=== PATIENT | male | born 1955 | race African-American/Black ===

== ENCOUNTER 2017-11-16 09:27 | Inpatient (IN) ==
[2017-11-16] MEDS ORDERED: hydrALAZINE 20 MG/1 ML VIAL IV STA (09:45)
[2017-11-16] MEDS ORDERED: ALBUTEROL/IPRATROPIUM 3 ML NEB RESP TX STA (09:45)
[2017-11-16 09:56] LABS: Basophils % 0.3 % (0.0-0.8); Eosinophils % 0.1 % (0.00-10.9); Hematocrit 25.7 VOL% (42.0-52.0); Hemoglobin 8.5 GM/DL (14.0-18.0); Immature Granulocytes % 0.6 %; Immature Granulocytes Absolute 0.05 #; Lymphocytes # 0.5 10*3/uL (1.4-4.0); Mean Corpuscular HGB Conc 33.1 GM/DL (32-36); Mean Corpuscular Hemoglobin 30 PG (27-34); Mean Corpuscular Volume 89.5 FL (87-102); Mean Platelet Volume 10.9 FL (9.6-12.0); Monocytes # 0.6 10*3/uL (0.11-0.8); Monocytes % 7.3 % (1.7-12.7); Neutrophils # 6.7 10*3/uL (1.4-7.4); Neutrophils % 85.7 % (38.7-73.9); Platelet Count 117 T/CUMM (130-400); Red Blood Count 2.87 MC/CUMM (3.8-5.5); Red Cell Distribution Width 15.2 % (9.3-17.3); White Blood Count 7.8 T/CUMM (4-12)
[2017-11-16 10:05] LABS: INR 1.2; PT Patient Result 12.5 SECS; Partial Thromboplastin Time 28.9 SECS (0-40)
[2017-11-16 10:11] LABS: Apearance,Urine CLEAR (Clear); Bilirubin,Urine Negative (Negative); Blood, Urine Negative (Negative); Glucose,Urine (UA) 50 mg/dL (Negative); Ketones,Urine Negative (Negative); Nitrite,Urine Negative (Negative); Protein,Urine >=500 MG/DL; RBC,Urine <1 /HPF (0-4); Squamous Epithelial Cell,Urine Occasional /HPF (0-10); Urine Color Yellow (Yellow); Urine Urobilinogen < 2.0 EU/DL (0.2-1.0); WBC,Urine <1 /HPF (0-6)
[2017-11-16 10:21] LABS: Barbiturates Screen,Urine Negative (Negative); Benzodiazepines Screen,Urine Negative (Negative); Cannabinoid Screen,Urine Negative (Negative); Opiate Screen,Urine Negative (Negative); Phencyclidine Screen,Urine Negative (Negative)
[2017-11-16] MEDS ORDERED: FUROSEMIDE 40 MG/4 ML VIAL IV STA (10:26)
[2017-11-16] MEDS ORDERED: FUROSEMIDE 40 MG/4 ML VIAL ONE (10:30)
[2017-11-16 10:50] LABS: Alanine Aminotransferase 17 U/L (16-61); Alkaline Phosphatase 54 U/L (45-117); Aspartate Amino Transferase 16 U/L (0-37); Blood Urea Nitrogen 129 MG/DL (7-18); Calcium 7.7 MG/DL (8.5-10.1); Glucose 152 MG/DL (74-106); Osmolality,Calculated 314.1 MOS/KG (273-304); Potassium 3.9 MMOL/L (3.5-5.1); Sodium 135 MMOL/L (136-145); Total Protein 6.5 G/DL (6.4-8.3); Troponin I Only 0.713 NG/ML (0.00-0.045)
[2017-11-16] MEDS ORDERED: ONDANSETRON 4 MG/2 ML VIAL IV PRN (12:11)
[2017-11-16] MEDS ORDERED: ZALEPLON 5 MG CAPSULE PO PRN (12:11)
[2017-11-16] MEDS ORDERED: ACETAMINOPHEN 325 MG TABLET PO PRN (12:11)
[2017-11-16] MEDS ORDERED: EPOETIN ALFA 2,000 UNIT/1 ML VIAL IV PRN (16:05)
[2017-11-16] MEDS: CALCITRIOL 0.25 MCG CAPSULE PO SCH (16:32)
[2017-11-16] MEDS: CALCIUM CARBONATE CHEW 500 MG TABLET PO SCH (16:32)
[2017-11-16] MEDS: METOPROLOL TARTRATE 50 MG TABLET PO SCH (16:32)
[2017-11-16 16:35] LABS: Hepatitis A Ab IgM Quant 0.15 Index; Hepatitis A Ab IgM Result Negative (Negative); Hepatitis B Core IgM Quant 0.18 Index; Hepatitis B Core IgM Result Negative (Negative); Hepatitis B Surface Ag Quant < 0.10 Index; Hepatitis B Surface Ag Result Negative (Negative); Hepatitis C Virus Ab Quant 0.18 Index; Hepatitis C Virus Ab Result Negative (Negative)
[2017-11-16] MEDS: DOXAZOSIN 4 MG TABLET PO SCH (21:42)
[2017-11-16] MEDS: DOCUSATE SODIUM 100 MG CAPSULE PO SCH (21:43)
[2017-11-17 04:51] LABS: Basophils % 0.4 % (0.0-0.8); Eosinophils # 0.2 10*3/uL (0.0-0.87); Eosinophils % 3.7 % (0.00-10.9); Hematocrit 23.9 VOL% (42.0-52.0); Hemoglobin 8.1 GM/DL (14.0-18.0); Immature Granulocytes % 1.1 %; Immature Granulocytes Absolute 0.05 #; Lymphocytes # 0.6 10*3/uL (1.4-4.0); Lymphocytes % 12.7 % (21.2-54.2); Mean Corpuscular HGB Conc 33.9 GM/DL (32-36); Mean Corpuscular Hemoglobin 30 PG (27-34); Mean Corpuscular Volume 88.5 FL (87-102); Monocytes # 0.5 10*3/uL (0.11-0.8); Monocytes % 10.6 % (1.7-12.7); Neutrophils # 3.3 10*3/uL (1.4-7.4); Neutrophils % 71.5 % (38.7-73.9); Platelet Count 115 T/CUMM (130-400); Red Cell Distribution Width 15.5 % (9.3-17.3); White Blood Count 4.6 T/CUMM (4-12)
[2017-11-17 05:10] LABS: Risk Ratio 2.44
[2017-11-17 05:11] LABS: Albumin 2.8 G/DL (3.4-5.0); Bilirubin,Total 0.6 MG/DL (0.2-1.0); Calcium 7.6 MG/DL (8.5-10.1); Osmolality,Calculated 304.5 MOS/KG (273-304); Potassium 3.9 MMOL/L (3.5-5.1); Total Protein 5.9 G/DL (6.4-8.3)
[2017-11-17 07:30] LABS: Eosinophils 3 % (0-10); Giant Platelets Few; Hypochromasia 1+; Lymphocytes 10 % (20-55); Ovalocytes Slight; Platelet Estimate Decreased; Segmented Neutrophils 79 % (50-85); Total Cells Counted 100
[2017-11-17 07:31] LABS: Microcytosis Slight
[2017-11-17] MEDS ORDERED: LISINOPRIL 20 MG TABLET PO SCH (09:00)
[2017-11-17] MEDS ORDERED: EPOETIN ALFA 10,000 UNIT/1 ML VIAL IV SCH (11:00)
[2017-11-17] MEDS ORDERED: HEPARIN 10,000 UNIT/10 ML VIAL IV SCH (11:00)
[2017-11-17] MEDS: CALCITRIOL 0.25 MCG CAPSULE PO SCH (14:45)
[2017-11-17] MEDS: LISINOPRIL 20 MG TABLET PO SCH (14:45)
[2017-11-17] MEDS: DOCUSATE SODIUM 100 MG CAPSULE PO SCH ×2 (14:45→20:29)
[2017-11-17] MEDS: PANTOPRAZOLE 40 MG TABLET PO SCH (14:45)
[2017-11-17] MEDS: amLODIPine 10 MG TABLET PO SCH (14:45)
[2017-11-17] MEDS: CALCIUM CARBONATE CHEW 500 MG TABLET PO SCH ×3 (14:45→17:32)
[2017-11-17] MEDS: METOPROLOL TARTRATE 50 MG TABLET PO SCH ×2 (14:46→17:33)
[2017-11-17] MEDS: DOXAZOSIN 4 MG TABLET PO SCH (20:27)
[2017-11-18] MEDS: IRON SUCROSE 200 MG in SODIUM CHLORIDE 0.9% 100 ML IV SCH (09:42)
[2017-11-18] MEDS: METOPROLOL TARTRATE 50 MG TABLET PO SCH ×2 (09:48→17:32)
[2017-11-18] MEDS: CALCIUM CARBONATE CHEW 500 MG TABLET PO SCH ×3 (09:48→17:32)
[2017-11-18] MEDS: PANTOPRAZOLE 40 MG TABLET PO SCH (09:48)
[2017-11-18] MEDS: amLODIPine 10 MG TABLET PO SCH (09:48)
[2017-11-18] MEDS: CALCITRIOL 0.25 MCG CAPSULE PO SCH (09:49)
[2017-11-18] MEDS: DOCUSATE SODIUM 100 MG CAPSULE PO SCH ×2 (09:49→20:12)
[2017-11-18] MEDS: LISINOPRIL 20 MG TABLET PO SCH (09:49)
[2017-11-18] MEDS: DOXAZOSIN 4 MG TABLET PO SCH (20:11)
[2017-11-19] MEDS: CALCITRIOL 0.25 MCG CAPSULE PO SCH (08:20)
[2017-11-19] MEDS: LISINOPRIL 20 MG TABLET PO SCH (08:20)
[2017-11-19] MEDS: METOPROLOL TARTRATE 50 MG TABLET PO SCH ×2 (08:20→17:17)
[2017-11-19] MEDS: CALCIUM CARBONATE CHEW 500 MG TABLET PO SCH ×3 (08:20→17:17)
[2017-11-19] MEDS: PANTOPRAZOLE 40 MG TABLET PO SCH (08:20)
[2017-11-19] MEDS: DOCUSATE SODIUM 100 MG CAPSULE PO SCH ×2 (08:21→20:50)
[2017-11-19] MEDS: amLODIPine 10 MG TABLET PO SCH (08:21)
[2017-11-19] MEDS: IRON SUCROSE 200 MG in SODIUM CHLORIDE 0.9% 100 ML IV SCH (08:24)
[2017-11-19] MEDS: DOXAZOSIN 4 MG TABLET PO SCH (20:50)
[2017-11-20] MEDS: DOCUSATE SODIUM 100 MG CAPSULE PO SCH (08:02)
[2017-11-20] MEDS: CALCITRIOL 0.25 MCG CAPSULE PO SCH (08:02)
[2017-11-20] MEDS: CALCIUM CARBONATE CHEW 500 MG TABLET PO SCH ×2 (08:02→12:46)
[2017-11-20] MEDS: PANTOPRAZOLE 40 MG TABLET PO SCH (08:02)
[2017-11-20 12:39] VITALS: BP 157/86
[2017-11-20] MEDS: IRON SUCROSE 200 MG in SODIUM CHLORIDE 0.9% 100 ML IV SCH (12:39)
[2017-11-20] MEDS: METOPROLOL TARTRATE 50 MG TABLET PO SCH (12:45)
[2017-11-20] MEDS: amLODIPine 10 MG TABLET PO SCH (12:46)
[2017-11-20] MEDS: LISINOPRIL 20 MG TABLET PO SCH (12:46)
== END 2017-11-20 12:55 | disposition home or self-care (01) | DRG 640 ==
LOC: N.ED 09:27 → N.EDINP 10:59 → N.5E 12:51
PROVIDERS: ADMIT Family Medicine; ATTEND Family Medicine